=== PATIENT | female | born 1935 | race Hispanic/Latino ===

== ENCOUNTER 2017-12-23 13:00 | Emergency (ER) | payer MEDICARE ==
[~2017-12-23 13:00] MED LIST: ACET-2900 PO; ACET1TAB25 PO; AMLO5TAB4 PO; APIX2.5T PO; ASPI-555 PO; ATOR20TA PO; CLOP75TA14 PO; DICY20 PO; DOCU240C25 PO; FERS325 PO; GABA-529 PO; INSU100V3 IJ; LACT10SO9 PO; LEVO250T2 PO; METF-445 PO; SIME80TA12 PO
[2017-12-23] MEDS ORDERED: SODIUM CHLORIDE 0.9% 1000ML 1,000 ML IV ONE (13:45)
[2017-12-23] MEDS ORDERED: MORPHINE SULFATE 4 MG/1ML SYG ONE (13:45)
[2017-12-23] MEDS ORDERED: ONDANSETRON HCL 4 MG/2 ML VIAL ONE (13:46)
[2017-12-23 13:47] LABS: BASOPHILS % (AUTO) 0.9 % (0.0-5.0); EOSINOPHILS % (AUTO) 2.6 % (0.0-8.0); HEMATOCRIT 36.1 % (36-48); LYMPHOCYTES % (AUTO) 27.9 % (21.0-51.0); MEAN CORPUSCULAR HEMOGLOBIN 28.3 pg (27.0-33.0); MEAN CORPUSCULAR HGB CONC 33.7 g/dL (32.0-36.0); MEAN CORPUSCULAR VOLUME 83.9 fL (79-99); MONOCYTES % (AUTO) 6.1 % (3.0-13.0); NEUTROPHILS % (AUTO) 62.5 % (40.0-77.0); NUCLEATED RED BLOOD CELLS 0.1 % (0.0-0.19); PLATELET COUNT (AUTO) 219 K/uL (130-400); RED BLOOD CELL COUNT(AUTO) 4.31 MIL/uL (4.00-5.50); RED CELL DISTRIBUTION WIDTH 13.8 % (11.0-15.5); WHITE BLOOD COUNT (AUTO) 6.9 K/uL (4.8-10.8)
[2017-12-23 14:02] LABS: CREATININE 1.9 mg/dL (0.5-1.5); POTASSIUM 3.7 mmol/L (3.5-5.1)
[2017-12-23 14:05] LABS: ALBUMIN 1.9 g/dL (3.5-5.0); BILIRUBIN,TOTAL 0.3 mg/dL (0.2-1.0); TOTAL PROTEIN, SERUM 6.2 g/dL (6.0-8.3)
[2017-12-23 14:17] LABS: INR 0.99 (0.85-1.15); PROTHROMBIN TIME 10.4 SEC (9.6-11.6)
== END 2017-12-23 16:16 | disposition home or self-care (01) ==
LOC: EDH 13:00
DX: K29.00 Acute gastritis without bleeding (principal); K59.00 Constipation, unspecified; E11.9 Type 2 diabetes mellitus without complications; I10 Essential (primary) hypertension; Z88.0 Allergy status to penicillin
CPT/HCPCS: 36415; 74176; 80053; 82550; 83690; 84484; 85025; 85610; 85730; 93005; 96361; 96374; 96375; 99285; J2270; J2405; J7030

== ENCOUNTER 2018-01-09 08:33 | Emergency (ER) | payer MEDICARE ==
[2018-01-09] MEDS ORDERED: LIDOCAINE HCL 2% VISCOUS 15 ML UDCUP ONE (09:07)
[2018-01-09] MEDS ORDERED: MORPHINE SULFATE 4 MG/1ML SYG ONE ×2 (09:07→09:10)
[2018-01-09] MEDS ORDERED: ONDANSETRON HCL 4 MG/2 ML VIAL ONE ×2 (09:07→09:10)
[2018-01-09] MEDS ORDERED: MAG HYDROX/AL HYDROX/SIMETH ES 30 ML SUSP UDCUP ONE (09:07)
[2018-01-09 09:29] LABS: BASOPHILS % (AUTO) 0.9 % (0.0-5.0); EOSINOPHILS % (AUTO) 2.2 % (0.0-8.0); HEMATOCRIT 36.3 % (36-48); LYMPHOCYTES % (AUTO) 24.2 % (21.0-51.0); MEAN CORPUSCULAR HEMOGLOBIN 28.9 pg (27.0-33.0); MEAN CORPUSCULAR HGB CONC 34.4 g/dL (32.0-36.0); MEAN CORPUSCULAR VOLUME 84.1 fL (79-99); MONOCYTES % (AUTO) 7.6 % (3.0-13.0); NEUTROPHILS % (AUTO) 65.1 % (40.0-77.0); NUCLEATED RED BLOOD CELLS 0.1 % (0.0-0.19); PLATELET COUNT (AUTO) 248 K/uL (130-400); RED BLOOD CELL COUNT(AUTO) 4.31 MIL/uL (4.00-5.50); RED CELL DISTRIBUTION WIDTH 14.3 % (11.0-15.5); WHITE BLOOD COUNT (AUTO) 8.3 K/uL (4.8-10.8)
[2018-01-09 09:38] LABS: CREATININE 1.7 mg/dL (0.5-1.5); POTASSIUM 3.1 mmol/L (3.5-5.1)
[2018-01-09 09:42] LABS: ALBUMIN 2.1 g/dL (3.5-5.0); BILIRUBIN,TOTAL 0.6 mg/dL (0.2-1.0); TOTAL PROTEIN, SERUM 6.5 g/dL (6.0-8.3)
== END 2018-01-09 11:53 | disposition home or self-care (01) ==
LOC: EDH 08:33
DX: K29.00 Acute gastritis without bleeding (principal); I10 Essential (primary) hypertension; E11.9 Type 2 diabetes mellitus without complications; Z90.49 Acquired absence of other specified parts of digestive tract; Z88.0 Allergy status to penicillin
CPT/HCPCS: 36415; 74018; 80053; 82150; 83690; 84484; 85025; 93005; 96374; 96375; 99285; J2270 ×2; J2405 ×2

== ENCOUNTER 2018-01-13 10:40 | Inpatient (IN) | payer MEDICARE ==
[~2018-01-13] VITALS: Ht 147.3 cm; Wt 47.0 kg
[2018-01-13] MEDS ORDERED: SODIUM CHLORIDE 0.9% 1000ML 1,000 ML IV ONE (11:18)
[2018-01-13] MEDS ORDERED: ONDANSETRON HCL 4 MG/2 ML VIAL ONE (11:18)
[2018-01-13] MEDS ORDERED: MORPHINE SULFATE 2 MG/ML 1ML SYG ONE (11:19)
[2018-01-13 11:25] LABS: BASOPHILS % (AUTO) 0.4 % (0.0-5.0); EOSINOPHILS % (AUTO) 0.4 % (0.0-8.0); HEMATOCRIT 34.4 % (36-48); LYMPHOCYTES % (AUTO) 13.4 % (21.0-51.0); MEAN CORPUSCULAR HGB CONC 33.3 g/dL (32.0-36.0); MEAN CORPUSCULAR VOLUME 84.3 fL (79-99); MONOCYTES % (AUTO) 4.7 % (3.0-13.0); NEUTROPHILS % (AUTO) 81.1 % (40.0-77.0); PLATELET COUNT (AUTO) 271 K/uL (130-400); RED BLOOD CELL COUNT(AUTO) 4.08 MIL/uL (4.00-5.50); RED CELL DISTRIBUTION WIDTH 13.9 % (11.0-15.5); WHITE BLOOD COUNT (AUTO) 8.8 K/uL (4.8-10.8)
[2018-01-13 11:45] LABS: CREATININE 2.1 mg/dL (0.5-1.5); POTASSIUM 3.6 mmol/L (3.5-5.1)
[2018-01-13 11:47] LABS: PARTIAL THROMBOPLASTIN TIME 33.4 SEC (26.3-35.5); PROTHROMBIN TIME 10.5 SEC (9.6-11.6)
[2018-01-13 11:49] LABS: ALBUMIN 2.2 g/dL (3.5-5.0); BILIRUBIN,TOTAL 0.6 mg/dL (0.2-1.0); TOTAL PROTEIN, SERUM 6.6 g/dL (6.0-8.3)
[2018-01-13 12:01] LABS: B-TYPE NATRIURETIC PEPTIDE > 5000 pg/mL (0-100)
[2018-01-13] MEDS ORDERED: ALBUMIN (HUMAN) 25% 50 ML IV ONE (12:13)
[2018-01-13] MEDS ORDERED: FUROSEMIDE 10 MG/ML 2ML VIAL ONE (12:15)
[2018-01-13] MEDS ORDERED: ACETAMINOPHEN 325 MG TAB PO PRN (13:30)
[2018-01-13] MEDS ORDERED: HYDRALAZINE HCL 20 MG/ML VIAL IV PRN (13:30)
[2018-01-13] MEDS ORDERED: MORPHINE SULFATE 2 MG/ML 1ML SYG IV PRN (13:30)
[2018-01-13] MEDS ORDERED: BUMETANIDE 0.25 MG/ML 10 ML VIAL IV SCH (13:30)
[2018-01-13] MEDS ORDERED: LACTULOSE 20 GM/30 ML UDCUP PO PRN (13:30)
[2018-01-13] MEDS ORDERED: ONDANSETRON HCL 4 MG/2 ML VIAL IV PRN (13:30)
[2018-01-13] MEDS ORDERED: MAG HYDROX/AL HYDROX/SIMETH ES 30 ML SUSP UDCUP PO PRN (13:30)
[2018-01-13] MEDS: NITROGLYCERIN 1GM/1 INCH PACKET TD SCH ×2 (13:30→21:09)
[2018-01-13] MEDS ORDERED: BUMETANIDE IVP SCH (14:00)
[2018-01-13] MEDS ORDERED: SODIUM CHLORIDE 0.9% IVP SCH (14:00)
[2018-01-13 15:34] LABS: HEMOGLOBIN A1C 9.3 % (4.0-6.0)
[2018-01-13 16:09] VITALS: BP 142/65
[2018-01-13] MEDS ORDERED: PANT40TA25 PO (16:46)
[2018-01-13] MEDS ORDERED: HYOS-28 PO (16:46)
[2018-01-13] MEDS ORDERED: AMIO200T5 PO (16:46)
[2018-01-13] MEDS ORDERED: FURO40TA5 PO (16:46)
[2018-01-13] MEDS ORDERED: CARV6.25 PO (16:46)
[2018-01-13] MEDS: INSULIN LISPRO 100 UNIT/ML 3ML SQ SCH ×2 (17:00→20:51)
[2018-01-13 17:40] LABS: CREATINE KINASE, TOTAL 96 U/L (21-232); MYOGLOBIN 188 ng/mL (10-92); TROPONIN I < 0.04 ng/mL (0.00-0.06)
[2018-01-13] MEDS ORDERED: PNEUMOCOCCAL VACCINE POLYVALENT 0.5 ML/VIAL [PPV] IM SCH (19:15)
[2018-01-13 19:47] VITALS: BP 145/59
[2018-01-13] MEDS: ATORVASTATIN CALCIUM 20 MG TABLET PO SCH (20:39)
[2018-01-13] MEDS ORDERED: INSULIN GLARGINE 100 UNITS/ML 10 ML VIAL SQ SCH (21:00)
[2018-01-13 22:44] LABS: CREATINE KINASE, TOTAL 85 U/L (21-232); MYOGLOBIN 164 ng/mL (10-92); TROPONIN I < 0.04 ng/mL (0.00-0.06)
[2018-01-13 23:45] VITALS: BP 155/69
[2018-01-14 04:02] VITALS: BP 131/52
[2018-01-14 04:05] LABS: HEMATOCRIT 29.6 % (36-48); MEAN CORPUSCULAR HGB CONC 34.8 g/dL (32.0-36.0); MEAN CORPUSCULAR VOLUME 83.2 fL (79-99); PLATELET COUNT (AUTO) 249 K/uL (130-400); RED BLOOD CELL COUNT(AUTO) 3.55 MIL/uL (4.00-5.50); RED CELL DISTRIBUTION WIDTH 13.8 % (11.0-15.5); WHITE BLOOD COUNT (AUTO) 6.9 K/uL (4.8-10.8)
[2018-01-14 04:27] LABS: CARBON DIOXIDE 32 mmol/L (21-32); CHLORIDE 107 mmol/L (101-111); CHOLESTEROL 136 mg/dL (<200); CREATINE KINASE, TOTAL 61 U/L (21-232); GLOMERULAR FILTR. RATE CALC 25 mL/min (>60); GLUCOSE,RANDOM 65 mg/dL (70-105); HDL CHOLESTEROL 74 mg/dL (35-85); LDL DIRECT 54 mg/dL (0-99); MYOGLOBIN 136 ng/mL (10-92); SODIUM SERUM 144 mmol/L (136-145); TRIGLYCERIDES 76 mg/dL (30-200); TROPONIN I < 0.04 ng/mL (0.00-0.06); UREA NITROGEN, BLOOD 20 mg/dL (7-18)
[2018-01-14 04:30] LABS: POTASSIUM 2.7 mmol/L (3.5-5.1)
[2018-01-14 04:33] LABS: B-TYPE NATRIURETIC PEPTIDE > 5000 pg/mL (0-100)
[2018-01-14] MEDS ORDERED: POTASSIUM CHLORIDE 10% ELIXIR 20 MEQ/15 ML UDCUP ONE (04:37)
[2018-01-14] MEDS ORDERED: POTASSIUM CHLORIDE 20MEQ/100ML 100 ML IV ONE (04:38)
[2018-01-14] MEDS: NITROGLYCERIN 1GM/1 INCH PACKET TD SCH ×3 (04:55→21:30)
[2018-01-14] MEDS ORDERED: LIDOCAINE HCL-MPF 1% 2ML VIAL IVP PRN (05:00)
[2018-01-14] MEDS ORDERED: POTASSIUM CHLORIDE 20 MEQ ERTAB PO PRN (05:00)
[2018-01-14] MEDS ORDERED: MAGNESIUM 2GM PREMIX 50ML 50 ML IV PRN (05:00)
[2018-01-14] MEDS ORDERED: POTASSIUM CHLORIDE 20MEQ/100ML 100 ML IV PRN (05:00)
[2018-01-14] MEDS ORDERED: POTASSIUM CHLORIDE 10% ELIXIR 20 MEQ/15 ML UDCUP PO PRN (05:00)
[2018-01-14] MEDS: INSULIN LISPRO 100 UNIT/ML 3ML SQ SCH ×5 (05:41→19:47)
[2018-01-14 07:25] VITALS: BP 141/57
[2018-01-14] MEDS ORDERED: POTASSIUM CHLORIDE 20 MEQ ERTAB PO SCH ×2 (07:30→11:30)
[2018-01-14] MEDS: ASPIRIN 81MG TAB.CHEW PO SCH (08:31)
[2018-01-14] MEDS: SPIRONOLACTONE 25 MG TAB PO SCH (08:31)
[2018-01-14] MEDS: PANTOPRAZOLE SODIUM 40 MG TABLET.DR PO SCH (08:31)
[2018-01-14] MEDS ORDERED: CLOPIDOGREL BISULFATE 75 MG TAB PO SCH (09:00)
[2018-01-14] MEDS ORDERED: ENOXAPARIN SODIUM 40 MG/0.4 ML SYRINGE SQ SCH (09:00)
[2018-01-14 09:47] LABS: % IRON SATURATION 9.7 % (22-44)
[2018-01-14 11:28] VITALS: BP 133/58
[2018-01-14 11:40] LABS: POTASSIUM 3.9 mmol/L (3.5-5.1)
[2018-01-14] MEDS: APIXABAN 2.5 MG TABLET PO SCH ×2 (11:57→19:50)
[2018-01-14] MEDS: AMIODARONE HCL 200 MG TABLET PO SCH ×2 (11:58→21:00)
[2018-01-14] MEDS: DOCUSATE CALCIUM 240 MG CAP PO SCH ×2 (11:58→19:50)
[2018-01-14] MEDS: CARVEDILOL 6.25 MG TABLET PO SCH ×2 (11:58→21:00)
[2018-01-14] MEDS: AMLODIPINE BESYLATE 5 MG TAB PO SCH (11:58)
[2018-01-14] MEDS: GABAPENTIN 100 MG CAPSULE PO SCH ×3 (11:59→19:50)
[2018-01-14] MEDS: FERROUS SULFATE 325 MG TABLET.DR PO SCH (12:09)
[2018-01-14] MEDS ORDERED: EPOETIN ALFA 10,000 UNIT/ML VIAL SQ SCH (16:15)
[2018-01-14 16:20] VITALS: BP 117/57
[2018-01-14] MEDS ORDERED: METFORMIN HCL 850 MG TABLET PO SCH (17:00)
[2018-01-14] MEDS ORDERED: COMPOUND IV MISC 1 EACH IVSOLN MISC PRN (17:15)
[2018-01-14] MEDS: IRON SUCROSE COMPLEX 100 MG in SODIUM CHLORIDE 0.9% 50 ML IV SCH (17:39)
[2018-01-14] MEDS: ATORVASTATIN CALCIUM 20 MG TABLET PO SCH (19:51)
[2018-01-14 20:02] VITALS: BP 115/47
[2018-01-15] VITALS (7 sets, daily range): BP systolic 113–133; BP diastolic 38–57
[2018-01-15 04:11] LABS: HEMATOCRIT 29.7 % (36-48); MEAN CORPUSCULAR HGB CONC 34.9 g/dL (32.0-36.0); MEAN CORPUSCULAR VOLUME 83.2 fL (79-99); PLATELET COUNT (AUTO) 213 K/uL (130-400); RED BLOOD CELL COUNT(AUTO) 3.58 MIL/uL (4.00-5.50); RED CELL DISTRIBUTION WIDTH 14.1 % (11.0-15.5); WHITE BLOOD COUNT (AUTO) 5.7 K/uL (4.8-10.8)
[2018-01-15 04:28] LABS: ALBUMIN 1.6 g/dL (3.5-5.0); POTASSIUM 3.4 mmol/L (3.5-5.1)
[2018-01-15 04:38] LABS: B-TYPE NATRIURETIC PEPTIDE 3560 pg/mL (0-100)
[2018-01-15] MEDS: NITROGLYCERIN 1GM/1 INCH PACKET TD SCH (05:30)
[2018-01-15] MEDS: INSULIN LISPRO 100 UNIT/ML 3ML SQ SCH ×4 (06:30→21:00)
[2018-01-15] MEDS: FERROUS SULFATE 325 MG TABLET.DR PO SCH (08:00)
[2018-01-15] MEDS: ALBUMIN (HUMAN) 25% 50 ML IV SCH ×4 (09:00→21:46)
[2018-01-15] MEDS: IRON SUCROSE COMPLEX 100 MG in SODIUM CHLORIDE 0.9% 50 ML IV SCH ×2 (09:00→13:09)
[2018-01-15] MEDS: DOCUSATE CALCIUM 240 MG CAP PO SCH ×2 (09:00→21:44)
[2018-01-15] MEDS: AMLODIPINE BESYLATE 5 MG TAB PO SCH (09:29)
[2018-01-15] MEDS: PANTOPRAZOLE SODIUM 40 MG TABLET.DR PO SCH (09:29)
[2018-01-15] MEDS: SPIRONOLACTONE 25 MG TAB PO SCH (09:29)
[2018-01-15] MEDS: CARVEDILOL 6.25 MG TABLET PO SCH ×2 (09:30→21:45)
[2018-01-15] MEDS: GABAPENTIN 100 MG CAPSULE PO SCH ×3 (09:30→21:44)
[2018-01-15] MEDS: APIXABAN 2.5 MG TABLET PO SCH ×2 (09:31→17:17)
[2018-01-15] MEDS: ASPIRIN 81MG TAB.CHEW PO SCH (09:31)
[2018-01-15] MEDS: AMIODARONE HCL 200 MG TABLET PO SCH (09:42)
[2018-01-15] MEDS: ATORVASTATIN CALCIUM 20 MG TABLET PO SCH (21:44)
[2018-01-16 03:00] VITALS: BP 115/37
[2018-01-16 03:46] LABS: HEMATOCRIT 27.8 % (36-48); MEAN CORPUSCULAR HEMOGLOBIN 28.3 pg (27.0-33.0); MEAN CORPUSCULAR HGB CONC 34.1 g/dL (32.0-36.0); MEAN CORPUSCULAR VOLUME 83.1 fL (79-99); NUCLEATED RED BLOOD CELLS 0.1 % (0.0-0.19); PLATELET COUNT (AUTO) 178 K/uL (130-400); RED BLOOD CELL COUNT(AUTO) 3.35 MIL/uL (4.00-5.50); WHITE BLOOD COUNT (AUTO) 6.6 K/uL (4.8-10.8)
[2018-01-16 03:57] LABS: ALBUMIN 1.9 g/dL (3.5-5.0); BILIRUBIN,TOTAL 0.3 mg/dL (0.2-1.0); CREATININE 2.3 mg/dL (0.5-1.5); POTASSIUM 3.2 mmol/L (3.5-5.1)
[2018-01-16 04:13] LABS: B-TYPE NATRIURETIC PEPTIDE 2780 pg/mL (0-100)
[2018-01-16] MEDS: ALBUMIN (HUMAN) 25% 50 ML IV SCH ×2 (04:34→11:44)
[2018-01-16] MEDS: INSULIN LISPRO 100 UNIT/ML 3ML SQ SCH ×4 (07:30→21:00)
[2018-01-16] MEDS: FERROUS SULFATE 325 MG TABLET.DR PO SCH (07:38)
[2018-01-16 07:59] VITALS: BP 133/55
[2018-01-16] MEDS: ASPIRIN 81MG TAB.CHEW PO SCH (08:31)
[2018-01-16] MEDS: AMLODIPINE BESYLATE 5 MG TAB PO SCH (08:31)
[2018-01-16] MEDS: APIXABAN 2.5 MG TABLET PO SCH ×2 (08:31→17:39)
[2018-01-16] MEDS: CARVEDILOL 6.25 MG TABLET PO SCH (08:31)
[2018-01-16] MEDS: SPIRONOLACTONE 25 MG TAB PO SCH (08:31)
[2018-01-16] MEDS: AMIODARONE HCL 200 MG TABLET PO SCH (08:31)
[2018-01-16] MEDS: PANTOPRAZOLE SODIUM 40 MG TABLET.DR PO SCH (08:31)
[2018-01-16] MEDS: GABAPENTIN 100 MG CAPSULE PO SCH ×3 (08:32→20:54)
[2018-01-16] MEDS: IRON SUCROSE COMPLEX 100 MG in SODIUM CHLORIDE 0.9% 50 ML IV SCH (08:34)
[2018-01-16] MEDS ORDERED: FUROSEMIDE 40 MG TABLET PO SCH (09:00)
[2018-01-16] MEDS: DOCUSATE CALCIUM 240 MG CAP PO SCH ×2 (09:00→20:55)
[2018-01-16 11:42] VITALS: BP 108/39
[2018-01-16] MEDS: LINAGLIPTIN 5 MG TABLET PO SCH (11:43)
[2018-01-16] MEDS: FUROSEMIDE 40 MG TABLET PO SCH ×2 (11:43→17:40)
[2018-01-16 16:00] VITALS: BP 105/49
[2018-01-16 19:00] VITALS: BP 114/36
[2018-01-16] MEDS ORDERED: ALBUMIN (HUMAN) 25% 50 ML IV SCH (20:00)
[2018-01-16] MEDS: ATORVASTATIN CALCIUM 20 MG TABLET PO SCH (20:55)
[2018-01-16] MEDS: CARVEDILOL 3.125 MG TABLET PO SCH (20:55)
[2018-01-16 23:00] VITALS: BP 113/38
[2018-01-17 03:56] LABS: HEMATOCRIT 27.5 % (36-48); MEAN CORPUSCULAR HEMOGLOBIN 28.5 pg (27.0-33.0); MEAN CORPUSCULAR HGB CONC 33.6 g/dL (32.0-36.0); MEAN CORPUSCULAR VOLUME 84.8 fL (79-99); PLATELET COUNT (AUTO) 176 K/uL (130-400); RED BLOOD CELL COUNT(AUTO) 3.25 MIL/uL (4.00-5.50); RED CELL DISTRIBUTION WIDTH 13.9 % (11.0-15.5); WHITE BLOOD COUNT (AUTO) 6.5 K/uL (4.8-10.8)
[2018-01-17 04:00] VITALS: BP 94/42
[2018-01-17 04:01] LABS: CREATININE 2.3 mg/dL (0.5-1.5); POTASSIUM 3.3 mmol/L (3.5-5.1)
[2018-01-17 04:13] LABS: B-TYPE NATRIURETIC PEPTIDE 3040 pg/mL (0-100)
[2018-01-17 07:00] VITALS: BP 103/41
[2018-01-17] MEDS: INSULIN LISPRO 100 UNIT/ML 3ML SQ SCH ×2 (07:30→11:30)
[2018-01-17] MEDS: AMLODIPINE BESYLATE 5 MG TAB PO SCH (08:34)
[2018-01-17] MEDS: APIXABAN 2.5 MG TABLET PO SCH (08:34)
[2018-01-17] MEDS: AMIODARONE HCL 200 MG TABLET PO SCH (08:34)
[2018-01-17] MEDS: DOCUSATE CALCIUM 240 MG CAP PO SCH (08:34)
[2018-01-17] MEDS: LINAGLIPTIN 5 MG TABLET PO SCH (08:34)
[2018-01-17] MEDS: FUROSEMIDE 40 MG TABLET PO SCH (08:35)
[2018-01-17] MEDS: PANTOPRAZOLE SODIUM 40 MG TABLET.DR PO SCH (08:35)
[2018-01-17] MEDS: FERROUS SULFATE 325 MG TABLET.DR PO SCH (08:35)
[2018-01-17] MEDS: GABAPENTIN 100 MG CAPSULE PO SCH (08:35)
[2018-01-17] MEDS: CARVEDILOL 3.125 MG TABLET PO SCH (08:36)
[2018-01-17] MEDS: SPIRONOLACTONE 25 MG TAB PO SCH (08:36)
[2018-01-17] MEDS ORDERED: EPOETIN ALFA 10,000 UNIT/ML VIAL SQ SCH (09:30)
[2018-01-17] MEDS ORDERED: POTASSIUM CHLORIDE 20 MEQ ERTAB PO SCH (09:30)
[2018-01-17] MEDS ORDERED: LINA5TAB PO (10:05)
[2018-01-17] MEDS ORDERED: CARV3.1262 PO (10:05)
[2018-01-17] MEDS ORDERED: SPIR25TA PO (10:05)
[2018-01-17] MEDS ORDERED: FURO40TA7 PO (10:05)
[2018-01-17 11:00] VITALS: BP 117/40
[2018-01-17] MEDS ORDERED: SPIRONOLACTONE 25 MG TAB PO SCH (21:00)
== END 2018-01-17 14:45 | disposition home or self-care (01) | DRG 291 ==
LOC: EDH 10:40 → EDHIP 13:21 → 2AH 15:09
PROVIDERS: ADMIT Internal Medicine; ATTEND Internal Medicine
PROC: 3E0234Z Introduction of Serum, Toxoid and Vaccine into Muscle, Percutaneous Approach (ICD-10-PCS; principal; 2018-01-14)
DX: I13.0 Hypertensive heart and chronic kidney disease with heart failure and stage 1 through stage 4 chronic kidney disease, or unspecified chronic kidney disease (principal); E43 Unspecified severe protein-calorie malnutrition; I50.43 Acute on chronic combined systolic (congestive) and diastolic (congestive) heart failure; E11.52 Type 2 diabetes mellitus with diabetic peripheral angiopathy with gangrene; R64 Cachexia; K92.2 Gastrointestinal hemorrhage, unspecified; M86.9 Osteomyelitis, unspecified; N18.4 Chronic kidney disease, stage 4 (severe); I48.0 Paroxysmal atrial fibrillation; I50.9 Heart failure, unspecified; R09.89 Other specified symptoms and signs involving the circulatory and respiratory systems; E11.21 Type 2 diabetes mellitus with diabetic nephropathy; E11.22 Type 2 diabetes mellitus with diabetic chronic kidney disease; E11.69 Type 2 diabetes mellitus with other specified complication; Z66 Do not resuscitate; T50.2X5A Adverse effect of carbonic-anhydrase inhibitors, benzothiadiazides and other diuretics, initial encounter; E78.5 Hyperlipidemia, unspecified; D64.9 Anemia, unspecified; D50.9 Iron deficiency anemia, unspecified; K59.00 Constipation, unspecified; Z72.0 Tobacco use; Z89.612 Acquired absence of left leg above knee; Z83.3 Family history of diabetes mellitus; Z79.01 Long term (current) use of anticoagulants; Z82.49 Family history of ischemic heart disease and other diseases of the circulatory system; Z23 Encounter for immunization; Z68.21 Body mass index [BMI] 21.0-21.9, adult
CPT/HCPCS: 36415; 71045; 80048; 80053; 80061; 82040; 82550; 82948; 83036; 83540; 83550; 83735; 83874; 83880; 84484; 85025; 85027; 85610; 85730; 90732; 93005; 93306; 97039; J0885; J1650; J1756; J1940; J2405; J3475; J3480; J3490; J7030; P9047; Q2038

== ENCOUNTER 2018-01-19 04:23 | Inpatient (IN) | payer MEDICARE ==
[~2018-01-19] VITALS: Ht 149.9 cm; Wt 49.0 kg
[~2018-01-19 04:23] MED LIST changes: +AMIO200T5 PO; -AMLO5TAB4 PO; +CARV3.1262 PO; -CLOP75TA14 PO; +FURO40TA7 PO; +HYOS-28 PO; -LEVO250T2 PO; +LINA5TAB PO; -METF-445 PO; +PANT40TA25 PO; -SIME80TA12 PO; +SPIR25TA PO
[2018-01-19] MEDS ORDERED: FUROSEMIDE 10 MG/ML 4ML VIAL ONE (04:41)
[2018-01-19] MEDS ORDERED: NITROGLYCERIN 1GM/1 INCH PACKET TD ONE (04:57)
[2018-01-19 04:58] LABS: ABG HCO3 29.8 mmol/L (21.0-28.0); ABG OXYGEN SATURATION 99.6 % (95.0-99.0); ABG PCO2 44 mmHg (32-45)
[2018-01-19 05:00] LABS: BASOPHILS % (AUTO) 1.2 % (0.0-5.0); EOSINOPHILS % (AUTO) 0.9 % (0.0-8.0); HEMATOCRIT 32.1 % (36-48); LYMPHOCYTES % (AUTO) 11.8 % (21.0-51.0); MEAN CORPUSCULAR HEMOGLOBIN 27.6 pg (27.0-33.0); MEAN CORPUSCULAR HGB CONC 32.3 g/dL (32.0-36.0); MEAN CORPUSCULAR VOLUME 85.3 fL (79-99); MONOCYTES % (AUTO) 8.6 % (3.0-13.0); NEUTROPHILS % (AUTO) 77.5 % (40.0-77.0); NUCLEATED RED BLOOD CELLS 0.2 % (0.0-0.19); PLATELET COUNT (AUTO) 218 K/uL (130-400); RED BLOOD CELL COUNT(AUTO) 3.76 MIL/uL (4.00-5.50); RED CELL DISTRIBUTION WIDTH 14.1 % (11.0-15.5); WHITE BLOOD COUNT (AUTO) 11.5 K/uL (4.8-10.8)
[2018-01-19 05:18] LABS: ALBUMIN 2.3 g/dL (3.5-5.0); BILIRUBIN,DIRECT 0.1 mg/dL (0.0-0.3); BILIRUBIN,TOTAL 0.6 mg/dL (0.2-1.0); CREATININE 2.7 mg/dL (0.5-1.5); TOTAL PROTEIN, SERUM 6.4 g/dL (6.0-8.3)
[2018-01-19 05:19] LABS: B-TYPE NATRIURETIC PEPTIDE 4160 pg/mL (0-100)
[2018-01-19 05:20] LABS: INR 1.08 (0.85-1.15); PARTIAL THROMBOPLASTIN TIME 35.5 SEC (26.3-35.5); POTASSIUM 4.6 mmol/L (3.5-5.1); PROTHROMBIN TIME 11.3 SEC (9.6-11.6)
[2018-01-19] MEDS ORDERED: FUROSEMIDE 10 MG/ML 4ML VIAL IVP SCH (06:45)
[2018-01-19] MEDS ORDERED: HYDRALAZINE HCL 20 MG/ML VIAL IV PRN (08:15)
[2018-01-19] MEDS ORDERED: ACETAMINOPHEN 325 MG TAB PO PRN (08:15)
[2018-01-19] MEDS ORDERED: ONDANSETRON HCL 4 MG/2 ML VIAL IV PRN (08:15)
[2018-01-19] MEDS ORDERED: MORPHINE SULFATE 2 MG/ML 1ML SYG IV PRN (08:15)
[2018-01-19] MEDS ORDERED: ACETAMINOPHEN EXTENDED RELEASE 650 MG TABLET PO SCH (08:30)
[2018-01-19] MEDS ORDERED: LACTULOSE 20 GM/30 ML UDCUP PO PRN (08:30)
[2018-01-19 10:50] VITALS: BP 125/52
[2018-01-19] MEDS: IPRATROPIUM/ALBUTEROL SULFATE 3 ML SOLUTION IH SCH ×3 (11:02→23:54)
[2018-01-19] MEDS: FERROUS SULFATE 325 MG TABLET.DR PO SCH (11:08)
[2018-01-19] MEDS: ASPIRIN 81MG TAB.CHEW PO SCH (11:08)
[2018-01-19] MEDS: APIXABAN 2.5 MG TABLET PO SCH ×2 (11:08→20:48)
[2018-01-19] MEDS: GABAPENTIN 100 MG CAPSULE PO SCH ×3 (11:08→20:49)
[2018-01-19] MEDS: FAMOTIDINE/PF 20 MG/2 ML VIAL IV SCH (11:08)
[2018-01-19] MEDS: AMIODARONE HCL 200 MG TABLET PO SCH ×2 (11:09→20:49)
[2018-01-19] MEDS: CARVEDILOL 3.125 MG TABLET PO SCH ×2 (11:09→21:00)
[2018-01-19] MEDS: DOCUSATE CALCIUM 240 MG CAP PO SCH ×2 (11:10→20:41)
[2018-01-19] MEDS: INSULIN HUMULIN R 100 UNIT/ML 3ML SQ SCH ×3 (12:13→21:00)
[2018-01-19] MEDS: HYOSCYAMINE SULFATE 0.125 MG TAB.SUBL SL SCH ×2 (12:16→16:38)
[2018-01-19 12:18] LABS: CREATINE KINASE, TOTAL 49 U/L (21-232); MYOGLOBIN 116 ng/mL (10-92); TROPONIN I < 0.04 ng/mL (0.00-0.06)
[2018-01-19] MEDS ORDERED: MILRINONE-D5W 20 MG/100 ML 100 ML IV SCH (13:00)
[2018-01-19] MEDS: MILRINONE-D5W 20 MG/100 ML 100 ML IV SCH (14:30)
[2018-01-19 16:00] VITALS: BP 121/51
[2018-01-19 19:00] VITALS: BP 114/51
[2018-01-19 20:23] LABS: CREATINE KINASE, TOTAL 43 U/L (21-232); MYOGLOBIN 114 ng/mL (10-92); TROPONIN I < 0.04 ng/mL (0.00-0.06)
[2018-01-19] MEDS: FUROSEMIDE 10 MG/ML 4ML VIAL IVP SCH (20:46)
[2018-01-19] MEDS: ATORVASTATIN CALCIUM 20 MG TABLET PO SCH (20:49)
[2018-01-19 23:00] VITALS: BP 92/32
[2018-01-20] MEDS: HYOSCYAMINE SULFATE 0.125 MG TAB.SUBL SL SCH ×3 (00:45→17:17)
[2018-01-20 03:00] VITALS: BP 90/33
[2018-01-20 03:42] LABS: HEMATOCRIT 26.4 % (36-48); MEAN CORPUSCULAR HEMOGLOBIN 28.1 pg (27.0-33.0); MEAN CORPUSCULAR VOLUME 85.1 fL (79-99); NUCLEATED RED BLOOD CELLS 0.2 % (0.0-0.19); PLATELET COUNT (AUTO) 183 K/uL (130-400)
[2018-01-20] MEDS: FUROSEMIDE 10 MG/ML 4ML VIAL IVP SCH (04:00)
[2018-01-20 04:16] LABS: CARBON DIOXIDE 33 mmol/L (21-32); CHLORIDE 103 mmol/L (101-111); CREATINE KINASE, TOTAL 36 U/L (21-232); GLOMERULAR FILTR. RATE CALC 16 mL/min (>60); GLUCOSE,RANDOM 164 mg/dL (70-105); MYOGLOBIN 128 ng/mL (10-92); POTASSIUM 3.6 mmol/L (3.5-5.1); SODIUM SERUM 142 mmol/L (136-145); TROPONIN I < 0.04 ng/mL (0.00-0.06); UREA NITROGEN, BLOOD 40 mg/dL (7-18)
[2018-01-20] MEDS: IPRATROPIUM/ALBUTEROL SULFATE 3 ML SOLUTION IH SCH ×3 (06:19→18:03)
[2018-01-20] MEDS: INSULIN HUMULIN R 100 UNIT/ML 3ML SQ SCH ×4 (06:35→21:00)
[2018-01-20 07:43] VITALS: BP 95/41
[2018-01-20] MEDS: DOCUSATE CALCIUM 240 MG CAP PO SCH ×2 (09:00→21:43)
[2018-01-20] MEDS: CARVEDILOL 3.125 MG TABLET PO SCH ×2 (09:00→21:43)
[2018-01-20] MEDS: ASPIRIN 81MG TAB.CHEW PO SCH (09:00)
[2018-01-20] MEDS: APIXABAN 2.5 MG TABLET PO SCH (09:00)
[2018-01-20] MEDS: AMIODARONE HCL 200 MG TABLET PO SCH ×2 (09:00→21:41)
[2018-01-20] MEDS: FAMOTIDINE/PF 20 MG/2 ML VIAL IV SCH (09:49)
[2018-01-20] MEDS: FERROUS SULFATE 325 MG TABLET.DR PO SCH (09:49)
[2018-01-20] MEDS: GABAPENTIN 100 MG CAPSULE PO SCH ×3 (09:49→21:42)
[2018-01-20 11:43] VITALS: BP 98/39
[2018-01-20 17:08] VITALS: BP 112/47
[2018-01-20 19:00] VITALS: BP 122/45
[2018-01-20] MEDS: ATORVASTATIN CALCIUM 20 MG TABLET PO SCH (21:41)
[2018-01-20 23:00] VITALS: BP 113/44
[2018-01-21] MEDS: IPRATROPIUM/ALBUTEROL SULFATE 3 ML SOLUTION IH SCH ×5 (00:10→23:35)
[2018-01-21] MEDS: HYOSCYAMINE SULFATE 0.125 MG TAB.SUBL SL SCH ×3 (00:32→17:13)
[2018-01-21 04:00] VITALS: BP 114/44
[2018-01-21 04:52] LABS: BASOPHILS % (AUTO) 0.5 % (0.0-5.0); EOSINOPHILS % (AUTO) 3.1 % (0.0-8.0); LYMPHOCYTES % (AUTO) 21.1 % (21.0-51.0); MEAN CORPUSCULAR HEMOGLOBIN 27.8 pg (27.0-33.0); MEAN CORPUSCULAR HGB CONC 33.2 g/dL (32.0-36.0); MEAN CORPUSCULAR VOLUME 83.8 fL (79-99); MONOCYTES % (AUTO) 12.6 % (3.0-13.0); NEUTROPHILS % (AUTO) 62.7 % (40.0-77.0); NUCLEATED RED BLOOD CELLS 0.2 % (0.0-0.19); PLATELET COUNT (AUTO) 200 K/uL (130-400); RED BLOOD CELL COUNT(AUTO) 3.11 MIL/uL (4.00-5.50); RED CELL DISTRIBUTION WIDTH 14.1 % (11.0-15.5); WHITE BLOOD COUNT (AUTO) 6.1 K/uL (4.8-10.8)
[2018-01-21 05:01] LABS: ALBUMIN 1.7 g/dL (3.5-5.0); BILIRUBIN,TOTAL 0.4 mg/dL (0.2-1.0); CREATININE 3.3 mg/dL (0.5-1.5); MAGNESIUM 1.8 mg/dL (1.80-2.40); PHOSPHORUS 3.5 mg/dL (2.5-4.9); POTASSIUM 3.7 mmol/L (3.5-5.1); TOTAL PROTEIN, SERUM 4.9 g/dL (6.0-8.3)
[2018-01-21 05:03] LABS: INR 1.15 (0.85-1.15)
[2018-01-21] MEDS: MILRINONE-D5W 20 MG/100 ML 100 ML IV SCH (05:10)
[2018-01-21 05:28] LABS: B-TYPE NATRIURETIC PEPTIDE 545 pg/mL (0-100)
[2018-01-21] MEDS: INSULIN HUMULIN R 100 UNIT/ML 3ML SQ SCH ×4 (06:36→23:33)
[2018-01-21 07:54] LABS: ABG BASE EXCESS 7.5 mmol/L (-2.0-3.0); ABG OXYGEN SATURATION 85.2 % (95.0-99.0); ABG PCO2 40 mmHg (32-45)
[2018-01-21 07:56] VITALS: BP 107/42
[2018-01-21] MEDS: AMIODARONE HCL 200 MG TABLET PO SCH ×2 (08:41→22:15)
[2018-01-21] MEDS: FERROUS SULFATE 325 MG TABLET.DR PO SCH (08:41)
[2018-01-21] MEDS: CARVEDILOL 3.125 MG TABLET PO SCH (08:42)
[2018-01-21] MEDS: GABAPENTIN 100 MG CAPSULE PO SCH ×3 (08:42→23:33)
[2018-01-21] MEDS: DOCUSATE CALCIUM 240 MG CAP PO SCH ×3 (08:42→22:15)
[2018-01-21] MEDS: FAMOTIDINE/PF 20 MG/2 ML VIAL IV SCH (08:43)
[2018-01-21 11:45] VITALS: BP 106/45
[2018-01-21 16:00] VITALS: BP 103/46
[2018-01-21 19:00] VITALS: BP_SYST 123; BP_SYST 213; BP_DIAS 59
[2018-01-21 20:42] LABS: APPEARANCE,URINE TURBID (CLEAR); BILIRUBIN,URINE NEGATIVE (NEGATIVE); COLOR,URINE YELLOW (YELLOW); GLUCOSE, URINE (UA) NEGATIVE (NEGATIVE); KETONES,URINE NEGATIVE (NEGATIVE); LEUKOCYTE ESTERASE ,URINE MODERATE (NEGATIVE); NITRATE,URINE NEGATIVE (NEGATIVE); OCCULT BLOOD,URINE LARGE (NEGATIVE); PH,URINE 5.5 (5.0-8.0); PROTEIN,URINE >=300 (NEGATIVE); UROBILINOGEN,URINE 0.2 mg/dL (0.2-1.0)
[2018-01-21 21:04] LABS: BACTERIA,URINE Moderate /HPF (None Seen); RBC,URINE None Seen /HPF (0-1); SQUAMOUS EPITHELIAL CELL,UR None Seen /HPF (0-2); WBC,URINE TNTC /HPF (0-1)
[2018-01-21 21:07] LABS: CREATININE,URINE RANDOM 79 mg/dL (30-135)
[2018-01-21 21:30] LABS: PROTEIN,URINE RANDOM 168.7 mg/dL (0-11.9)
[2018-01-21] MEDS: ATORVASTATIN CALCIUM 20 MG TABLET PO SCH (22:15)
[2018-01-21 23:00] VITALS: BP 124/41
[2018-01-22] MEDS: HYOSCYAMINE SULFATE 0.125 MG TAB.SUBL SL SCH ×3 (00:32→17:07)
[2018-01-22] MEDS: CARVEDILOL 3.125 MG TABLET PO SCH ×3 (00:32→22:43)
[2018-01-22] MEDS: MILRINONE-D5W 20 MG/100 ML 100 ML IV SCH ×2 (00:54→19:03)
[2018-01-22 04:00] VITALS: BP 115/51
[2018-01-22 04:29] LABS: BASOPHILS % (AUTO) 0.6 % (0.0-5.0); EOSINOPHILS % (AUTO) 3.1 % (0.0-8.0); HEMATOCRIT 26.1 % (36-48); LYMPHOCYTES % (AUTO) 19.4 % (21.0-51.0); MEAN CORPUSCULAR HEMOGLOBIN 28.3 pg (27.0-33.0); MEAN CORPUSCULAR HGB CONC 33.8 g/dL (32.0-36.0); MEAN CORPUSCULAR VOLUME 83.5 fL (79-99); MONOCYTES % (AUTO) 12.1 % (3.0-13.0); NEUTROPHILS % (AUTO) 64.8 % (40.0-77.0); PLATELET COUNT (AUTO) 242 K/uL (130-400); RED BLOOD CELL COUNT(AUTO) 3.12 MIL/uL (4.00-5.50); RED CELL DISTRIBUTION WIDTH 14.3 % (11.0-15.5); WHITE BLOOD COUNT (AUTO) 7.7 K/uL (4.8-10.8)
[2018-01-22 04:40] LABS: CREATININE 3.3 mg/dL (0.5-1.5); POTASSIUM 3.4 mmol/L (3.5-5.1)
[2018-01-22 04:42] LABS: % IRON SATURATION 12.1 % (22-44)
[2018-01-22] MEDS: IPRATROPIUM/ALBUTEROL SULFATE 3 ML SOLUTION IH SCH ×4 (06:00→23:15)
[2018-01-22] MEDS: INSULIN HUMULIN R 100 UNIT/ML 3ML SQ SCH ×4 (07:30→21:00)
[2018-01-22 07:51] VITALS: BP 110/41
[2018-01-22] MEDS: FAMOTIDINE/PF 20 MG/2 ML VIAL IV SCH (08:18)
[2018-01-22] MEDS: FERROUS SULFATE 325 MG TABLET.DR PO SCH (08:20)
[2018-01-22] MEDS: AMIODARONE HCL 200 MG TABLET PO SCH ×2 (08:20→22:41)
[2018-01-22] MEDS: DOCUSATE CALCIUM 240 MG CAP PO SCH ×3 (08:20→21:00)
[2018-01-22] MEDS: GABAPENTIN 100 MG CAPSULE PO SCH ×3 (08:20→22:45)
[2018-01-22] MEDS: ASPIRIN 81MG TAB.CHEW PO SCH (08:21)
[2018-01-22] MEDS ORDERED: IRON SUCROSE COMPLEX 100 MG in SODIUM CHLORIDE 0.9% 50 ML IV SCH (10:15)
[2018-01-22] MEDS ORDERED: COMPOUND IV MISC 1 EACH IVSOLN MISC PRN (10:15)
[2018-01-22 11:11] VITALS: BP 128/51
[2018-01-22] MEDS: EPOETIN ALFA 10,000 UNIT/ML VIAL SQ SCH (11:30)
[2018-01-22 16:12] VITALS: BP 120/49
[2018-01-22] MEDS ORDERED: FUROSEMIDE 40 MG TABLET PO SCH (17:00)
[2018-01-22 19:56] VITALS: BP 132/60
[2018-01-22] MEDS: ATORVASTATIN CALCIUM 20 MG TABLET PO SCH (22:41)
[2018-01-23] VITALS: BP 118/53
[2018-01-23] MEDS: HYOSCYAMINE SULFATE 0.125 MG TAB.SUBL SL SCH ×3 (00:30→16:30)
[2018-01-23 03:58] LABS: POTASSIUM 3.4 mmol/L (3.5-5.1)
[2018-01-23 04:00] VITALS: BP 122/51
[2018-01-23] MEDS: IPRATROPIUM/ALBUTEROL SULFATE 3 ML SOLUTION IH SCH ×3 (06:00→23:20)
[2018-01-23] MEDS: INSULIN HUMULIN R 100 UNIT/ML 3ML SQ SCH ×4 (07:05→21:00)
[2018-01-23] MEDS: EPOETIN ALFA 10,000 UNIT/ML VIAL SQ SCH (07:34)
[2018-01-23] MEDS ORDERED: ALPRAZOLAM 0.5 MG TABLET PO PRN (07:45)
[2018-01-23] MEDS: ASPIRIN 81MG TAB.CHEW PO SCH (07:45)
[2018-01-23] MEDS: FAMOTIDINE/PF 20 MG/2 ML VIAL IV SCH (07:46)
[2018-01-23] MEDS: AMIODARONE HCL 200 MG TABLET PO SCH ×2 (07:46→22:26)
[2018-01-23] MEDS: FERROUS SULFATE 325 MG TABLET.DR PO SCH (07:46)
[2018-01-23] MEDS: GABAPENTIN 100 MG CAPSULE PO SCH ×4 (07:46→22:27)
[2018-01-23] MEDS: DOCUSATE CALCIUM 240 MG CAP PO SCH ×2 (07:46→21:00)
[2018-01-23] MEDS: CARVEDILOL 3.125 MG TABLET PO SCH ×2 (07:46→22:26)
[2018-01-23 08:03] VITALS: BP 112/49
[2018-01-23] MEDS: QUETIAPINE FUMARATE 25 MG TAB PO SCH ×2 (08:04→22:27)
[2018-01-23] MEDS ORDERED: LEVOFLOXACIN 500 MG TABLET PO SCH (09:00)
[2018-01-23 11:53] VITALS: BP 98/96
[2018-01-23] MEDS: MILRINONE-D5W 20 MG/100 ML 100 ML IV SCH (15:04)
[2018-01-23] MEDS ORDERED: DEXTROSE 50%-WATER 50 ML DISP.SYRIN IV ONE (16:48)
[2018-01-23 16:52] VITALS: BP 111/35
[2018-01-23 20:04] VITALS: BP 150/71
[2018-01-23] MEDS: ATORVASTATIN CALCIUM 20 MG TABLET PO SCH ×2 (21:00→22:26)
[2018-01-24] VITALS: BP 125/52
[2018-01-24] MEDS: HYOSCYAMINE SULFATE 0.125 MG TAB.SUBL SL SCH ×2 (00:30→08:30)
[2018-01-24] MEDS: IPRATROPIUM/ALBUTEROL SULFATE 3 ML SOLUTION IH SCH (06:00)
[2018-01-24 07:36] VITALS: BP 123/50
[2018-01-24] MEDS: FERROUS SULFATE 325 MG TABLET.DR PO SCH (09:00)
[2018-01-24] MEDS: ASPIRIN 81MG TAB.CHEW PO SCH (09:00)
[2018-01-24] MEDS: AMIODARONE HCL 200 MG TABLET PO SCH (09:00)
[2018-01-24] MEDS: QUETIAPINE FUMARATE 25 MG TAB PO SCH (09:00)
[2018-01-24] MEDS: GABAPENTIN 100 MG CAPSULE PO SCH (09:00)
[2018-01-24] MEDS: CARVEDILOL 3.125 MG TABLET PO SCH (09:00)
[2018-01-24] MEDS: DOCUSATE CALCIUM 240 MG CAP PO SCH (09:00)
[2018-01-24] MEDS: EPOETIN ALFA 10,000 UNIT/ML VIAL SQ SCH (10:00)
[2018-01-24] MEDS: FAMOTIDINE/PF 20 MG/2 ML VIAL IV SCH (10:37)
[2018-01-24 11:25] VITALS: BP 143/58
[2018-01-24] MEDS: INSULIN HUMULIN R 100 UNIT/ML 3ML SQ SCH (11:30)
== END 2018-01-24 13:40 | disposition hospice, home (50) | DRG 682 ==
LOC: EDH 04:23 → EDHIP 06:24 → 2AH 10:45
PROVIDERS: ADMIT Internal Medicine; ATTEND Internal Medicine
PROC: 5A09357 Assistance with Respiratory Ventilation, Less than 24 Consecutive Hours, Continuous Positive Airway Pressure (ICD-10-PCS; principal; 2018-01-19)
DX: N17.9 Acute kidney failure, unspecified (principal); J96.01 Acute respiratory failure with hypoxia; I50.43 Acute on chronic combined systolic (congestive) and diastolic (congestive) heart failure; I13.2 Hypertensive heart and chronic kidney disease with heart failure and with stage 5 chronic kidney disease, or end stage renal disease; R71.0 Precipitous drop in hematocrit; I42.9 Cardiomyopathy, unspecified; N18.6 End stage renal disease; E11.22 Type 2 diabetes mellitus with diabetic chronic kidney disease; E11.51 Type 2 diabetes mellitus with diabetic peripheral angiopathy without gangrene; I25.10 Atherosclerotic heart disease of native coronary artery without angina pectoris; I48.91 Unspecified atrial fibrillation; Z51.5 Encounter for palliative care; Z82.49 Family history of ischemic heart disease and other diseases of the circulatory system; Z83.3 Family history of diabetes mellitus; Z87.891 Personal history of nicotine dependence; Z88.0 Allergy status to penicillin; Z89.612 Acquired absence of left leg above knee; Z90.49 Acquired absence of other specified parts of digestive tract; Z79.4 Long term (current) use of insulin; Z79.82 Long term (current) use of aspirin; Z79.899 Other long term (current) drug therapy
CPT/HCPCS: 36415; 36600; 71045; 76770; 80048; 80053; 80076; 81001; 82550; 82570; 82803; 82948; 83540; 83550; 83690; 83735; 83874; 83880; 84100; 84156; 84484; 85025; 85027; 85610; 85730; 87077; 87088; 87186; 93005; 94640; 94660; 94664; J0885; J1756; J1815; J1940; J2260; J3490; J7070

== ENCOUNTER 2018-08-10 20:26 | Emergency (ER) | payer MEDICARE ==
[~2018-08-10 20:26] MED LIST changes: -ACET-2900 PO; -APIX2.5T PO; -ASPI-555 PO; -ATOR20TA PO; -DICY20 PO; -DOCU240C25 PO; -FERS325 PO; -GABA-529 PO; -HYOS-28 PO; -LACT10SO9 PO; -PANT40TA25 PO
[2018-08-10 20:54] LABS: BASOPHILS % (AUTO) 0.9 % (0.0-5.0); EOSINOPHILS % (AUTO) 6.4 % (0.0-8.0); HEMATOCRIT 30.1 % (36-48); LYMPHOCYTES % (AUTO) 24.9 % (21.0-51.0); MEAN CORPUSCULAR HEMOGLOBIN 30.6 pg (27.0-33.0); MEAN CORPUSCULAR HGB CONC 34.8 g/dL (32.0-36.0); MEAN CORPUSCULAR VOLUME 88.1 fL (79-99); MONOCYTES % (AUTO) 8.9 % (3.0-13.0); NEUTROPHILS % (AUTO) 58.9 % (40.0-77.0); NUCLEATED RED BLOOD CELLS 0.1 % (0.0-0.19); PLATELET COUNT (AUTO) 201 K/uL (130-400); RED BLOOD CELL COUNT(AUTO) 3.42 MIL/uL (4.00-5.50); RED CELL DISTRIBUTION WIDTH 12.1 % (11.0-15.5); WHITE BLOOD COUNT (AUTO) 7.3 K/uL (4.8-10.8)
[2018-08-10 21:05] LABS: CREATININE 2.9 mg/dL (0.5-1.5); POTASSIUM 5.6 mmol/L (3.5-5.1)
== END 2018-08-10 21:45 | disposition home or self-care (01) ==
LOC: EDH 20:26
DX: E11.65 Type 2 diabetes mellitus with hyperglycemia (principal); E78.5 Hyperlipidemia, unspecified; I10 Essential (primary) hypertension; Z88.0 Allergy status to penicillin; Z90.49 Acquired absence of other specified parts of digestive tract; Z89.612 Acquired absence of left leg above knee
CPT/HCPCS: 36415; 80048; 82948; 85025